=== PATIENT | male | born 1965 | race Caucasian/White ===

== ENCOUNTER 2020-05-06 14:48 | Emergency (ER) | payer OTHER ==
[2020-05-06 14:56] VITALS: RESP 18
[2020-05-06] MEDS ORDERED: DIPH,PERTUS(ACELL)TETVAC-LF 0.5 ML VIAL IM ONE (15:56)
[2020-05-06] MEDS ORDERED: LIDOCAINE 1% INJ 10MG/ML (20 ML MDV) SQ ONE (15:56)
[2020-05-06] MEDS ORDERED: CEPHALEXIN 500MG STARTER PACK 4 CAP BTL PO STA (15:56)
[2020-05-06] MEDS ORDERED: WATER FOR IRRIG, STERILE 1,000 ML BTL IRRIGATION STA (15:56)
--- NOTE | 2020-05-06 16:39 | XR ---
EXAMINATION TYPE: XR hand complete RT DATE OF EXAM: 05/06/2020 COMPARISON: NONE HISTORY: 54-year-old male, laceration and pain TECHNIQUE: 3 views FINDINGS: No retained radiopaque foreign body is identified. Air interposed within the soft tissues along the v olar base of the thumb. Mild degenerative change first CMC and triscaphe joints. No acute fracture, s ubluxation, or dislocation. IMPRESSION: Soft tissue laceration along the base of the thumb. No acute osseous abnormality seen.
--- NOTE | 2020-05-06 17:29 | ED ---
General Adult HPI - General Chief complaint: Wound/Laceration Stated complaint: Hand Lac Time Seen by Provider: 05/06/20 15:36 Source: patient, RN notes reviewed Mode of arrival: ambulatory Limitations: no limitations - History of Present Illness Initial comments: 54-year-old male presents to the emergency room for a chief complaint of laceration to the right hand. Patient reports that he was doing drywall when he cut his hand on a metal hook. His tetanus is up-to-date. He denies any difficulty moving his thumb. He denies any other injuries.Patient has no other complaints at this time including shortness of breath, chest pain, abdominal pain, nausea or vomiting, headache, or visual changes. - Related Data Previous Rx's Medication Instructions Recorded Cephalexin [Keflex] 500 mg PO BID 5 Days #10 cap 05/06/20 Allergies Allergy/AdvReac Type Severity Reaction Status Date / Time No Known Allergies Allergy Verified 05/06/20 16:49 Review of Systems ROS Statement: Those systems with pertinent positive or pertinent negative responses have been documented in the HPI. ROS Other: All systems not noted in ROS Statement are negative. Past Medical History Past Medical History: No Reported History Additional Past Medical History / Comment(s): Hernia History of Any Multi-Drug Resistant Organisms: None Reported Past Surgical History: Orthopedic Surgery Additional Past Surgical History / Comment(s): Right ankle surgery Past Psychological History: No Psychological Hx Reported Smoking Status: Never smoker Past Alcohol Use History: None Reported Past Drug Use History: Marijuana General Exam Limitations: no limitations General appearance: alert, in no apparent distress Head exam: Present: atraumatic, normocephalic, normal inspection Eye exam: Present: normal appearance, PERRL, EOMI. Absent: scleral icterus, conjunctival injection, periorbital swelling ENT exam: Present: normal exam, mucous membranes moist Neck exam: Present: normal inspection, full ROM. Absent: tenderness, meni ngismus, lymphadenopathy Respiratory exam: Present: normal lung sounds bilaterally. Absent: respiratory distress, wheezes, rales, rhonchi, stridor Cardiovascular Exam: Present: regular rate, normal rhythm, normal heart sounds. Absent: systolic murmur, diastolic murmur, rubs, gallop, clicks GI/Abdominal exam: Present: soft, normal bowel sounds. Absent: distended, tenderness, guarding, rebound, rigid Extremities exam: Present: full ROM (Full range of motion of the right hand including the right thumb.), normal capillary refill (Capillary refill less than 2 seconds in the right upper extremity including the right thumb.), other (Patient has a laceration noted along the web space of the right thumb measuring about 3 cm. There is no obvious deep structure injury. No evidence of foreign body.). Absent: tenderness, pedal edema, joint swelling, calf tenderness Course Vital Signs 05/06/20 14:53 Temperature 98 F Pulse Rate 89 Respiratory 18 Rate Blood Pressure 147/85 O2 Sat by Pulse 97 Oximetry Procedures - Laceration Laceration #1 Consent Obtained: verbal consent Indication: laceration Site: hand Size (cm): 3 Description: stellate Depth: simple, single layer Anesthetic Used: lidocaine 1% Anesthesia Technique: local infiltration Amount (mls): 7 Pre-repair: wound explored, irrigated extensively (With sterile water followed by saline pressure irrigation), deep structures intact Type of Sutures: nylon Size of Sutures: 4-0 Number of Sutures: 8 Technique: simple, interrupted Patient Tolerated Procedure: well, no complications Medical Decision Making - Medical Decision Making Patient has laceration noted of the right thumb base in the webspace. Measures about 3 cm. No evidence of foreign body or deep structure injury. Full range of motion of the right thumb. Full strength of the right thumb. X-ray of the right hand shows soft tissue laceration along the base of the thumb without acute osseous abnormality. The wound was cleaned thoroughly. 8 sutures were applied. Patient was educated on return parameters. He will follow up with primary care for recheck. He will return in 10 days for suture removal. Disposition Clinical Impression: Laceration Disposition: HOME SELF-CARE Condition: Good Instructions (If sedation given, give patient instructions): Care For Your Stitches (ED), Laceration (ED) Additional Instructions: Please keep the area clean. Monitor for signs of infection such as spreading or streaking redness, drainage, or fever and return if these occur. Otherwise return in 10 days for suture removal. Prescriptions: Cephalexin [Keflex] 500 mg PO BID 5 Days #10 cap Is patient prescribed a controlled substance at d/c from ED?: No Referrals: Sidney Cruz [STAFF PHYSICIAN] - 1-2 days Time of Disposition: 17:26
[2020-05-06 17:43] VITALS: BP 138/82; PULSE 82; TEMP 98.2
== END 2020-05-06 17:43 | disposition home or self-care (01) ==
LOC: EC 14:48
DX: S61.011A Laceration without foreign body of right thumb without damage to nail, initial encounter (principal); Z23 Encounter for immunization; W26.8XXA Contact with other sharp object(s), not elsewhere classified, initial encounter; Y93.89 Activity, other specified; Y92.009 Unspecified place in unspecified non-institutional (private) residence as the place of occurrence of the external cause
CPT/HCPCS: 73130; 90715; 99283; 12002; 90471; J2001